=== PATIENT | female | born 1940 | race Two or more races ===

== ENCOUNTER 2020-07-29 06:00 | Day surgery (SDC) | payer OTHER ==
[~2020-07-29 06:00] MED LIST: ASPIR 8181 MG PO; COZAAR100 MG PO; GLIPIZIDE XL10 MG PO; HYDROCHLOROTHIA25 MG PO; METFORMIN HCL500 M3 PO; NORVASC5 MG PO; SIMVASTATIN20 MG PO
== END 2020-07-29 13:15 | disposition home or self-care (01) ==
LOC: CIR.AMB 06:00
PROVIDERS: ATTEND Surgery Surgery of the Hand
DX: M65.841 Other synovitis and tenosynovitis, right hand (principal); Z20.828 Contact with and (suspected) exposure to other viral communicable diseases